=== PATIENT | male | born 1970 | race Native Hawaiian/Other Pacific Islander ===

== ENCOUNTER 2020-09-09 11:44 | Emergency (ER) | payer OTHER ==
[~2020-09-09] VITALS: Ht 165.1 cm; Wt 61.7 kg
[2020-09-09 11:52] VITALS: TEMP 99.8
[2020-09-09 13:16] VITALS: BP 121/60
== END 2020-09-09 13:30 | disposition home or self-care (01) ==
LOC: ED 11:44
DX: N45.1 Epididymitis (principal)
CPT/HCPCS: 81000; 87077; 87086; 87088; 87186; 87490; 87590; 96372; 99283; J0696